=== PATIENT | female | born 1980 | race Caucasian/White ===

== ENCOUNTER 2020-09-15 10:47 | Emergency (ER) | payer OTHER, BC ==
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
== END 2020-09-15 12:17 | disposition home or self-care (01) ==
LOC: FB.ED 10:47
DX: S30.1XXA Contusion of abdominal wall, initial encounter (principal); Z88.1 Allergy status to other antibiotic agents; V47.6XXA Car passenger injured in collision with fixed or stationary object in traffic accident, initial encounter
CPT/HCPCS: 81001; 99282; 99284